=== PATIENT | female | born 1995 | race American Indian/Alaskan Native ===

== ENCOUNTER 2019-08-10 18:33 | Emergency (ER) | payer SELFPAY ==
--- NOTE | 2019-08-10 18:42 | Emergency Department Report ---
Chief Complaint: Medical Clearance Stated Complaint: CATHERATER REMOVAL Time Seen by Provider: 08/10/19 18:39 - HPI History of Present Illness: Jami is a 23 yo female who had Word Catheter inserted for Bartholin's abscess yesterday at OSH. She desires catheter to be removed. Referred to outpatient chain saw driver. Patient eloped prior appropriate disposition. MSE screening note: Focused history and physical exam performed. Due to findings the following was ordered: ED Disposition for MSE Clinical Impression: Encounter for medical screening examination Disposition: ELOPED Is pt being admited?: No Does the pt Need Aspirin: No Condition: Stable
== END 2019-08-10 19:00 | disposition left against medical advice (07) ==
LOC: ED 18:33
DX: T83.84XA Pain due to genitourinary prosthetic devices, implants and grafts, initial encounter (principal); Z53.21 Procedure and treatment not carried out due to patient leaving prior to being seen by health care provider